=== PATIENT | female | born 1940 | race Caucasian/White ===

== ENCOUNTER 2017-09-09 07:01 | Inpatient (IN) | payer MEDICARE, BC, SELFPAY ==
[2017-09-09] VITALS (17 sets, daily range): BP systolic 75–162; BP diastolic 41–93; PULSE 56–75; RESP 14–22; TEMP 36.1–37.2; O2SAT 92–97
[2017-09-09] MEDS: Lactated Ringers 1,000 ML 80 ML IV ×2 (06:37→12:24)
[2017-09-09] MEDS: Acetaminophen 500 MG TAB 1000 MG PO ×3 (06:37→22:39)
[2017-09-09] MEDS: Gabapentin 300 MG CAP PO ×2 (06:37→22:38)
[2017-09-09] MEDS: Lactated Ringers 1,000 ML 1000 ML IV (07:31)
[2017-09-09] MEDS: Normal Saline - Diluent 50 ML VIAL (09:30)
[2017-09-09] MEDS: Bupivacaine LIPOSOME/PF 133 MG/10 ML VIAL IJ (09:30)
[2017-09-09] MEDS: Bupivacaine 0.25% Pres-Free 30 ML VIAL 60 ML (09:30)
[2017-09-09] MEDS: Ketorolac 30 MG/ML VIAL (09:30)
--- NOTE | 2017-09-09 12:58 | NUR.NOTE ---
1154: PT. ARRIVED TO M/S UNIT VSS, A&OX3, LS: CLEAR, HR: REGULAR, +CMST'S, 1+BILAT. NON-PITTING EDEMA, MEDLEY IN PLACE PATENT AND DRAININGE Nursing Note:
[2017-09-09] MEDS: Normal Saline Flush 10 ML SYR IV (13:02)
[2017-09-09] MEDS: Ibuprofen 600 MG TAB PO (15:47)
--- NOTE | 2017-09-09 15:50 | IN_ITS ---
INPATIENT PHYSICAL THERAPY EVALUATION Date: 09/09/17 Referring Doctor: Dr. Martinez PT Orders: s/p right TKA Precautions: standard PATIENT PROFILE/ADMITTING DIAGNOSIS: Patient admitted s/p right TKA performed this morning, 09/09/17. PMHX: HTN, GERD, DM Social History/Home Situation: Patient lives alone in single level home with 3 MICHAEL, single rail. She has family members planning to stay with her for about 3 weeks after surgery to assist with her care. Equipment owned/DME: none SUBJECTIVE: Shreya states that she is feeling well. She is nervous about getting up to the chair, but states that she's ready. OBJECTIVE: General Observation: Resting comfortably in bed with RLE elevated, cryocuff over right knee. She has an IV in RUE and Leon catheter in place. She has 1L supplemental O2 via nasal cannula. Mental Status: A&Ox3 Pain: 410 Vital Signs: SaO2 at 94% on 1LPM. ROM: RUE: WNL LUE: WNL RLE: Right knee allows approx -5 degrees extension to 70 degrees flexion, as assessed functionally. LLE: Grossly WNL. STRENGTH: RLE: Patient is able to perform active SLR with minor extension lag for 2 reps. She's able to pump her ankles and wiggle toes. SENSATION: intact distally BED MOBILITY/TRANSFERS: supine->sit: supervision with HOB at 30 degrees sit->stand: CG stand->sit: CG bed->chair: CG with WW GAIT: Patient ambulates 25' with WW and CG. Requires assistance for management of lines, and cues for WW management. BALANCE: Static sitting: NL Dynamic Sitting: NL Static Standing: fair Dynamic Standing: fair Mobility Limitations Standardized Measure [facility] AM -PAC 6 clicks Basic Mobility Inpatient Short Form: raw score: 19 standardized score: 45.44 CMS score: 42% CMS modifier: CK INFORMED CONSENT/EDUCATION: Pt instructed in purpose of PT Consult and plan of care ASSESSMENT: Patient is a 77 year old female referred to physical therapy services with diagnosis of right knee OA s/p right TKA 09/09/17 . Patient presents with clinical signs and symptoms consistent with post-operative status as demonstrated by the following impairment level findings: 1. Decreased RLE strength 2. Decreased RLE ROM 3. Decreased balance 4. Decreased activity tolerance 5. Gait impairments Impairments are contributing to the following functional limitations: 1. [place] on WW 2. Decreased tolerance to household distance ambulation AMPAC score 42% deficit Patient is assessed as a Low 75141 ___x__ Moderate 38025 ____ high 20528 complexity based on the following: History: Patient with right knee OA, acutely s/p right TKA. Examination: functional limitations as above Presentation: stable Decision Making: low complexity GOALS Goals x1 week 1. Supine-sit: supervision 2. Sit-Supine: supervision 3. Sit-Stand: supervision 4. Stand-sit: supervision 5. Bed-chair: supervision with WW 6. Chair-bed: supervision with WW 7. Gait: supervision with WW x 50' 8. Stairs: 3 steps, single rail, supervision only PLAN OF CARE/TREATMENT PLAN: 1-2x/day, 7 days/ week x 1 week Plan of care has been reviewed with the SIGNALLING AND COMMUNICATIONS ENGINEER providing the service under Physical therapy direction. Initiate physical therapy intervention for strengthening, bed mobility, transfers, gait, stairs, balance training, use of assistive device. DISCHARGE RECOMMENDATIONS: Home with family assistance. Patient will require WW at time of discharge. TREATMENT TIME/MINUTES/CODES: 20 minutes (IE- low complexity) G Codes in the area mobility of walking and moving around: current status [id number] ___CK____projected status GP [id number]____YH . Discharge status ( if discharging) GP [id number]
[2017-09-10] MEDS: Lactated Ringers 1,000 ML 80 ML IV (01:43)
[2017-09-10 03:15] VITALS: BP 113/74; PULSE 72; RESP 18; TEMP 36.7; O2SAT 95
[2017-09-10] MEDS: Acetaminophen 500 MG TAB 1000 MG PO ×2 (04:52→13:48)
--- NOTE | 2017-09-10 06:26 | PDOC.OPNB ---
Date of Service: 09/09/17 Time of Service: 10:20 Op Note REPORT OF OPERATIVE PROCEDURE Date of Procedure: September 09, 2017 Preoperative Diagnosis: Right knee Osteoarthritis with severe valgus deformity Postoperative Diagnosis: Right knee Osteoarthritis with severe valgus deformity Surgery: Right total Knee Arthroplasty with Intraoperative Navigation Surgeon: Jason Martinez M.D. Ribbon Cleaner: ZULMA Toussaint Findings: Preoperatively there is a valgus deformity 15? and a flexion contracture of 10?. There is severe arthritis seen throughout the knee in all 3 compartments but especially of the lateral compartment. Implants: 1. Depuy Attune Posterior Stabilized Femoral Component, Size 6 narrow 2. Depuy Attune Fixed Platform Tibial Component, Size 4 3. Depuy Attune 6 x 8 mm fixed, Stabilized Poly 4. Depuy Attune Patellar Component, 32 mm Anesthesia: Spinal Estimated Blood Loss: 400 cc Complications: None Disposition: The patient was awakened from the sedation and transferred back to the PACU in a stable condition. Indications for Procedure: I have seen Shreya in clinic for symptoms of knee arthritis, confirmed with radiographic findings. Shreya has exhausted nonoperative methods and was having significant limitations in daily function and desired better function and less pain. I discussed the technical details of a knee replacement. Due to alignment and technical details, I also indicated the appropriateness of using a navigation device in the operating room. I explained the risks of the procedure to include, but not limited to, bleeding, infection, pain, stiffness, fracture, damage to nerves and vessels, damage to muscles and tendons, loosening, need for repeat procedure, blood clot and cardiopulmonary demise. Despite these risks, she elected to proceed. Procedure Description: Shreya was greeted in the preoperative holding area where the correct side was identified and marked. The consent was reviewed with the patient and signed. The history and physical was updated. All questions were answered. Preoperative mediacations were administered: Acetaminophen 1000mg, and gabapentin 300mg. An adductor canal block was then administered by the anesthesia team in the PACU. She was taken back to the operating room. A spinal anesthestic was then administered. The patient was placed into the supine position on the operating room table. A nonsterile tourniquet was placed high onto the leg but only used for cementing. Posts were placed for positioning during the procedure. All bony prominences were well padded. Prophylactic antibiotics in the form of Cefazolin were administered. 1g of Tranxemic Acid was given intravenously within 30 minutes of incision. The right leg was then prepped with Chloraprep and draped in a standard fashion with impervious stockinette and extremity drape with Iodine impregnated skin protection. A timeout to confirm correct identity, side and site, procedure, allergies, anesthesia, and medical concerns was performed. With the knee in some flexion, a midline incision was made overlying the knee. Full thickness skin flaps were raised once the extensor mechanism was encountered. These were raised medially and laterally. Any bleeding was controlled with electrocautery. Once the extensor mechanism was fully exposed, a medial parapatellar arthrotomy was performed in a flexed position. All bleeding from the arthrotomy and the geniculate arteries was coagulated. A medial subperiosteal peel was performed with electrocautery to the midcoronal plane. The fat pad was removed while keeping the patellar tendon protected. The anterior distal femur synovium was removed for later visualization. The ACL and PCL were resected and the anterior horn of the lateral meniscus was transected. The knee was then flexed with the patella everted. Large osteophytes from the tibia were removed. Large osteophytes from the femur were removed. There was some hypoplasia of the lateral femoral condyle and any remnant cartilage of the medial femoral condyle was removed for appropriate thickness. A single starting pin was then placed 1cm anterior to the PCL insertion and the notch in the direction of the femoral head. The OrthoAlign device was applied over the pin. It was oriented to be in line with the epicondylar axis and the trochlear groove. It was then pinned into place. The navigation computer was then turned on and calibrated. The distal femur cut was set at 0 degrees varus/valgus and 2.5 degrees flexion. The distal femur cutting guide then was positioned for a 11 mm cut. The distal femur was cut with an oscillating saw while protecting the soft tissues. The tibia was then addressed. The OrthoAlign device was placed over the tibial tubercle and medial tibia and secured into position. Once again, OrthoAlign was calibrated and then set for a 0 degree varus/valgus cut and 3 degrees of posterior slope. With this locked into position, the cut thickness stylus was used to assess cut thickness. The lateral side, most involved side, was set for a 4mm cut. This was then held in position and pinned into place with 2 additional pins and a cross pin for stability. The medial and lateral collateral ligaments were protected and the cut was performed. With this completed, it was assessed and noted to be of appropriate dimensions. The guide and OrthoAlign was removed. A spacer block was inserted and the knee was brought into extension. The 6mm spacer block provided full extension, without hyperextension and with stability of both the medial and lateral collateral ligaments was assessed. The pins from the femur and the tibia were then removed. The distal femur was then sized. The anterior stylus was placed onto the lateral ridge of the anterior femur. This indicated a size 6 femur. The external rotation of the guide was adjusted to 5? to match the epicondylar axis, perpendicular to Bartow?s line. The 4-in-1 cutting guide was the placed. The posterior medial femur cut was evaluated and appeared of good thickness. The spacer block was inserted underneath the cutting guide and stability was confirmed in 90 degrees of flexion. An jose manuel wing was used to confirm appropriate position of the anterior cut to avoid notching. This cutting guide was ensured to be flush on the cut surface and then pinned into place with headed pins. While protecting the soft tissues, quad tendon, and collateral ligaments, the anterior and posterior cuts were performed with a saw. The central two pins were removed and the posterior and anterior chamfers were cut next. The notch-cutting guide was placed. This was pinned to lateralize the femoral component as much as possible while keeping it flush on the cut surface. This was then pinned into position. A reciprocating saw was used to make the notch cut. A rasp smoothed the cut surfaces. A trial posterior stabilized femoral component was then inserted, impacted down to the cut surfaces, and the lug holes were drilled. A provisional trial tibial component was placed and the knee was brought through range of motion. There is still some tightness in extension. Therefore, I removed posterior osteophytes and strips of the posterior capsule focusing laterally more than medially. This helped with the bouncing an 8 mm spacer provided good balance both in flexion and extension. The patella was tracking without thumbs. The tibial cut surface was fully exposed. The medial and lateral menisci were removed. The tibia was then sized as a 4. The tibia had been previously marked during trialing to correspond to the center of the tibial component to help with rotation. The trial was aligned to this jay, approximately rotated to the medial 1/3rd of the tibial tubercle. The trial was pinned into place. The tibia was prepared with a reamer and a keel punch. The knee was then brought into extension and the patella was measured as 25 mm. Using the patellar clamp and cut guide, this was resected to a flat surface with at least 13mm of thickness remaining. The size 32 mm patella fit the best. This was oriented and then clamped into position. The lugs were drilled. The trial components were removed. The final components, except for the polyethylene were opened on the back table. The periosteal and capsular tissues around the knee were then systematically injected with a periarticular cocktail consisting of 50cc 0.25% Marcaine, 30mg Ketorolac, 20cc of Exparal and 50cc of injectable saline. The tourniquet was then inflated to 275mmHg. The knee was thoroughly irrigated with a pulse lavage and dried. On the back table, with the implants opened, the cement was mixed. 2 batches of antibiotic laden cement were prepared with vacuum assistance. After the cement was ready a small amount was placed on to the back side of the tibial component at the keel. A small amount was placed onto the posterior flange of the femur. Cement was manual pressurized and impregnated into the cut surface of the tibia. The tibial component was then inserted into the cut surface and impacted into position. Excess cement was removed and the component was reimpacted. Again, excess cement was removed and our attention was then turned to the femur. The femoral cut surface was once again dried and cement was manually impacted into the cut surface. The femoral component was lined with the lug holes and impacted. Excess cement was removed. It was ensured to be down against the cut surface. The trial polyethylene was then inserted and the leg was brought out into full extension for the duration of the cement curing process, approximately 15min. Cement was lastly manually impacted into the cut surface of the patella and the patellar button was clamped into position and held. During this process attention was turned to the gutters of the knee and for all interfaces for any excess cement. After the cement had finally cured, approximately 15min, the clamp was removed from the patella and the knee was taken through range of motion. A size 8 mm polyethylene component provided the best range of motion and stability with less than 2mm gapping with medial and lateral stress and full extension without significant hyperextension. The patella was tracking with a no-thumbs technique. The trial poly was removed and once again the knee was checked for any loose, excess, or errant cement. The poly component was then inserted and impacted into position after cleaning and drying the tibial tray. The capsule was then reapproximated with a No. 1 Vicryl at multiple locations. The capsule was finally closed with a No. 2 Stratafix, barbed suture. The tourniquet was then released and the arthrotomy appeared watertight. The second dosing of 1g TXA was started. Deep tissues were then reapproximated with 0 Vicryl and 2-0 Vicryl. The skin was closed with a running 3-0 Monocryl in a subcuticular fashion. This was reinforced with skin glue. A Mepilex silver dressing was applied along with a ayhy-xn-xeewt KAVIN wrap. A CryoCuff was applied. Shreya was transferred to the hospital bed without difficulty an suffering no apparent complication. She has a good prognosis. Physical therapy will start today and without restrictions, weight-bearing as tolerated. Aspirin 81mg BID will be used for DVT prophylaxis.
[2017-09-10 06:53] LABS: HCT 36.6 % (36.0-46.0); HGB 12.2 g/dL (12.0-15.5); Mean Corp. HGB Concentration 33.3 g/dL (32.0-36.0); Mean Corpuscular Hemoglobin 30.7 pg (27.0-33.0); Mean Corpuscular Volume 92.2 fL (80-95); Mean Platelet Volume 9.9 fL (8.0-11.0); Platelet Count 204 x1000/uL (130-400); RBC 3.97 m/cumm (4.00-5.20); RBC Distribution Width 13.1 % (11.7-14.6); White Blood Cell Count 7.14 k/cumm (4.4-10.8)
[2017-09-10 07:03] LABS: Anion Gap 3.2 mmol/L (3-11); BUN 13 mg/dL (7-18); CO2 31.8 mmol/L (21.0-32.0); Calcium 8.8 mg/dL (8.5-10.1); Chloride 105 mmol/L (98-107); Glucose 157 mg/dL (70-100); Potassium 4.2 mmol/L (3.5-5.1); Sodium 140 mmol/L (136-145)
[2017-09-10 07:26] VITALS: BP 118/68; PULSE 75; TEMP 37.4; O2SAT 92
[2017-09-10] MEDS: Aspirin E.C. 81 MG TABEC PO (07:41)
[2017-09-10] MEDS: Pantoprazole 40 MG TABCR PO (07:41)
[2017-09-10 08:39] VITALS: O2SAT 83
[2017-09-10 08:40] VITALS: O2SAT 96
[2017-09-10] MEDS: Ibuprofen 600 MG TAB PO ×2 (08:56→16:07)
--- NOTE | 2017-09-10 09:56 | INPTTR_ITS ---
PHYSICAL THERAPY PROGRESS NOTE Date: 09/10/17 PRECAUTIONS: STANDARD SUBJECTIVE: Shreya states that she's having knee pain. States that she thinks it' s waking up. OBJECTIVE PAIN: 8/10 at initiation of session. 07/22 post-treatment. BED MOBILITY/TRANSFERS Supine-sit: supervision, with HOB at 30 degrees Sit-supine: supervision Sit-stand: supervision Stand-sit: supervision, with need for occasional cues Bed-Chair: supervision with WW Chair-bed: supervision with WW GAIT Assistive Device WW Weightbearing full Assist: CG Distance: 30'x3 Deviation Patient is also able to ambulate 10'x2 with WW and supervision only VITALS: On room air, patient desaturates t o89% after stair management. With pursed lip breathing, she quickly resats to 93%. RT was present at initiation of session, requesting patient be off supplemental O2 when sitting up or ambulating, but on 1LPM when lying in bed. THEREX: Patient instructed in seated therex activities as noted on flow sheet. STAIRS: Patient manages 6 steps x 4, 4 steps x 6 with heavy reliance on bilat rails, CG throughout, and max cues for technique. ASSESSMENT: Excellent gains in mobility. She tolerated addition of stair management today with good safety awareness and mobility, although accompanied by oxygen desaturation. PLAN: Continue PT to maximize safety and mobility. TREATMENT CODES/TIME: LEIF TUCKER (35 minutes)
[2017-09-10 11:55] VITALS: BP 155/70; PULSE 70; TEMP 36.5; O2SAT 96
[2017-09-10 12:05] VITALS: O2SAT 95
--- NOTE | 2017-09-10 13:30 | PDOC.CMIN ---
Date of Service: 09/10/17 Time of Service: 13:30 Care Management Initial Assess REASON FOR HOSPITALIZATION:: Right Total Knee PAST MEDICAL HISTORY/PAST SURGICAL HISTORY:: Severe DJD of the right knee, hypertension, diabetes, GERD. Surgical history: Appendectomy, cholecystectomy, hysterectomy, left trapezial arthroplasty, trigger finger release, bilateral cataracts. PREVIOUS FUNCTIONAL STATUS/SOCIAL/FAMILY SUPPORTS:: Patient lives in her own home in [facility], she is . She has three grown children that are supportive. Her daughter Roxane will be staying with her for the week. CURRENT FUNCTIONAL STATUS:: Patient is alert, engaged with CM during assessment. She is hopeful she will be able to return home today she feels that she is ready for discharge.She states that she will plan to have PT over in [facility]. She has a camp there and wants to be there for the summer. ADVANCE DIRECTIVES:: On file at [facility] Has patient been provided with information about the portal?: Yes Did the patient sign up for the portal?: No CODE STATUS:: Full Code INSURANCE COVERAGE / FINANCIAL ISSUES:: Medicare. BCBS CURRENT HOME/COMMUNITY SERVICES/EQUIPMENT:: Patient has a walker, raised toilet seat and supportive family. PRIMARY CARE PHYSICIAN:: POTENTIAL DISCHARGE NEEDS:: Follow up appointment with PATIENT/FAMILY EDUCATION NEEDS:: Discharge education, limitations, follow-up plan of care, ask me 3 discussion and self-management. ANTICIPATED BARRIERS TO DISCHARGE:: No anticipated barriers at this time TRANSPORTATION:: Patient to be transported home by family via private car at time of discharge PLAN:: Patient continues to the medical surgical patient. She will be discharged home when medically ready per provider. Patient states he has a walker and does not need any other services at this time. Patient will be transported home by her daughter at time of discharge by private car.
--- NOTE | 2017-09-10 13:37 | INITIAL_ITS ---
Date of Service: 09/10/17 Time of Service: 13:30 Care Management Initial Assess REASON FOR HOSPITALIZATION:: Right Total Knee PAST MEDICAL HISTORY/PAST SURGICAL HISTORY:: Severe DJD of the right knee, hypertension, diabetes, GERD. Surgical history: Appendectomy, cholecystectomy, hysterectomy, left trapezial arthroplasty, trigger finger release, bilateral cataracts. PREVIOUS FUNCTIONAL STATUS/SOCIAL/FAMILY SUPPORTS:: Patient lives in her own home in [facility], she is . She has three grown children that are supportive. Her daughter Roxane will be staying with her for the week. CURRENT FUNCTIONAL STATUS:: Patient is alert, engaged with CM during assessment. She is hopeful she will be able to return home today she feels that she is ready for discharge.She states that she will plan to have PT over in [facility]. She has a camp there and wants to be there for the summer. ADVANCE DIRECTIVES:: On file at [facility] Has patient been provided with information about the portal?: Yes Did the patient sign up for the portal?: No CODE STATUS:: Full Code INSURANCE COVERAGE / FINANCIAL ISSUES:: Medicare. BCBS CURRENT HOME/COMMUNITY SERVICES/EQUIPMENT:: Patient has a walker, raised toilet seat and supportive family. PRIMARY CARE PHYSICIAN:: POTENTIAL DISCHARGE NEEDS:: Follow up appointment with PATIENT/FAMILY EDUCATION NEEDS:: Discharge education, limitations, follow-up plan of care, ask me 3 discussion and self-management. ANTICIPATED BARRIERS TO DISCHARGE:: No anticipated barriers at this time TRANSPORTATION:: Patient to be transported home by family via private car at time of discharge PLAN:: Patient continues to the medical surgical patient. She will be discharged home when medically ready per provider. Patient states he has a walker and does not need any other services at this time. Patient will be transported home by her daughter at time of discharge by private car.
--- NOTE | 2017-09-10 14:34 | INPTTR_ITS ---
PHYSICAL THERAPY PROGRESS NOTE Date: 09/10/17 SUBJECTIVE: Anh stating she is doing pretty good. She would like to go home. Her pain is under control when she is lying in bed and increases slightly with movement. OBJECTIVE Pt is in bed upon entering her room. Her daughter is present. She will be staying with Anh when she returns home. BED MOBILITY/TRANSFERS Scoot: I Supine-sit: S Sit-supine: Min A, Provide some assistance with right LE. Sit-stand: S Stand-sit: S GAIT Assistive Device FWW Weightbearing WBAT Assist: CG Distance: 50' VITALS: 91% on RA THEREX: Review HEP and gave pt handout of these exercises. She tolerates active SLR with slight extension lag. She has a good understanding of these exercises for home completion. ASSESSMENT: Tolerates PT well this afternoon. Anh and her daughter feel comfortable going home at this point and I do agree with them. PLAN: Per PT POC. TREATMENT CODES/TIME: 25 minutes. TA/LEIF Whitehead, ENEIDA
--- NOTE | 2017-09-10 14:34 | DISCHARGE ---
Discharge - Discharge Orders Referrals: Jason Martinez MD [ [facility] STAFF PHYSICIAN] - - Discharge Plan Disposition: HOME Condition: Good Diet:: Normal Diet Equipment/Supplies:: Walker Activity:: Activity as Tolerated - Instructions Additional Instructions: Dr. Martinez?s Total Knee Discharge Instructions Activity: The most important activity is to walk. You should try to take short walks a few times a day. It is important that when resting you work on keeping the knee straight. Avoid putting a pillow behind the knee as this will encourage flexion. Work on range of motion exercises as provided by Physical Therapy. - Start outpatient physical therapy within 2 weeks. - You should wear the ENE hose on both legs for 4 weeks. Dressing: Keep the surgical dressing in place for at least one week. After the first week it may be removed and replace with light gauze and tape or nothing. It may get wet after 3 days but avoid soaking the dressing. If it gets wet, just lightly pat dry. Medications: - You should take Tylenol and anti-inflammatory (Ibuprofen) as your primary pain control medications - You have been prescribed a stronger pain medication (Tramadol) for breakthrough pain, take as needed as prescribed. - You will be taking Aspirin 81mg twice a day for DVT prevention unless instructed otherwise. - If you have constipation you should take Colace or Miralax (both amnm-duj-aswoncy). It takes most people 3-4 days to have a bowel movement. Follow-up: 2 weeks
--- NOTE | 2017-09-10 14:38 | PDOC.DISCH_ITS ---
Discharge - Discharge Orders Referrals: Jason Martinez MD [ [facility] STAFF PHYSICIAN] - - Discharge Plan Disposition: HOME Condition: Good Diet:: Normal Diet Equipment/Supplies:: Walker Activity:: Activity as Tolerated - Instructions Additional Instructions: Dr. Martinez s Total Knee Discharge Instructions Activity: The most important activity is to walk. You should try to take short walks a few times a day. It is important that when resting you work on keeping the knee straight. Avoid putting a pillow behind the knee as this will encourage flexion. Work on range of motion exercises as provided by Physical Therapy. - Start outpatient physical therapy within 2 weeks. - You should wear the ENE hose on both legs for 4 weeks. Dressing: Keep the surgical dressing in place for at least one week. After the first week it may be removed and replace with light gauze and tape or nothing. It may get wet after 3 days but avoid soaking the dressing. If it gets wet, just lightly pat dry. Medications: - You should take Tylenol and anti-inflammatory (Ibuprofen) as your primary pain control medications - You have been prescribed a stronger pain medication (Tramadol) for breakthrough pain, take as needed as prescribed. - You will be taking Aspirin 81mg twice a day for DVT prevention unless instructed otherwise. - If you have constipation you should take Colace or Miralax (both over-the- counter). It takes most people 3-4 days to have a bowel movement. Follow-up: 2 weeks
--- NOTE | 2017-09-10 16:03 | PDOC.CMDIS ---
Date of Service: 09/10/17 Time of Service: 16:04 LACE Index Scoring Tool - Questions: Length of Stay (in days): 2 Acuity (Admit via E.D.?): No Comorbidities: Diabetes w/o Complication E.D. Visits: 0 - Answers: Total Score: 3 Risk of Readmission: Low Risk Care Management Discharge Reason for Hospitalization: Right Total Knee Discharge Plan: Pt to be discharged home today and follow up with as directed. She will transport home with daughter via private car. Pt has her own equipment including walker. Patient/Family Education Needs: Discharge education, limitations, follow-up plan of care, ask me 3 education and self-management discussion.
--- NOTE | 2017-09-11 08:09 | DSE_ITS ---
DISCHARGE SUMMARY DATE OF ADMISSION September 09, 2017 DATE OF DISCHARGE September 10, 2017 DISCHARGE DIAGNOSIS Right knee osteoarthritis. PROCEDURE September 09, 2017 - Right total knee arthroplasty. HISTORY OF PRESENT ILLNESS Shreya is a 77-year-old who has had severe arthritis of both knees. It has been limiting for her for man y years. After failure of conservative treatment options, she desired to proceed with a knee replace ment. The risks and benefits were discussed with her in the office and she elected to proceed. HOSPITAL COURSE Shreya was admitted to the Med/Surg floor following the procedure. She tolerated the procedure well with out any notable medical, surgical, or anesthetic complications. On postop day #0, she was able to ambulate. She did have some mild lightheadedness and hypotension at that time, but it resolved over the evening of postop day #0. By postop Day #1, her Leon catheter was removed and she was voiding spontaneously. Her vital signs are stable. Her postoperative hemoglobin was 12.2. She was able to ambulate with physical therapy. Her pain was controlled with Tylenol and ibuprofen. She was thus deemed safe to discharge home. I discussed Home Health Physical Therapy with her, but she desired to do outpatient physical therapy. DISCHARGE DISPOSITION Home. DISCHARGE CODE STATUS FULL CODE DISCHARGE INSTRUCTIONS Discharge instructions were provided in a separate document in the patient's EMR. DISCHARGE MEDICATIONS 1. Tramadol 50 mg p.o. q. 6 hours. 2. Acetaminophen 1000 mg p.o. q. 8 hours p.r.n. 3. Ibuprofen 600 mg p.o. t.i.d. p.r.n. 4. Aspirin enteric-coated 81 mg p.o. b.i.d. x6 weeks. 5. Docusate sodium 100 mg p.o. b.i.d. 6. Polyethylene glycol 3350 17 grams p.o. b.i.d. p.r.n. FOLLOWUP Followup in two weeks.
--- NOTE | 2017-09-11 16:05 | INDS_ITS ---
PHYSICAL THERAPY INPATIENT DISCHARGE NOTE Date: 09/11/17 Dates of Service: 09/09/17 - 09/10/17 This document serves as a summary of care. No PT services were provided on this date. SUBJECTIVE: Patient was discharged home the evening of 09/10/17, after 3 PT session for rehabilitation following right TKA. OBJECTIVE Pain: well-managed at time of last PT session ROM: RUE: WNL LUE: WNL RLE: Right knee allows approx -5 degrees extension to 80 degrees flexion, as assessed functionally. LLE: Grossly WNL. STRENGTH: RLE: Quad 3/5. Patient is able to perform active SLR with minor extension lag. SENSATION: intact distally BED MOBILITY/TRANSFERS: Supine-sit: supervision Sit-supine: min A to RLE Sit-stand: supervision Stand-sit: supervision GAIT: Patient able to ambulate 50' with WW and CG. Additionally, she demonstrated ability to ambulate short distances with WW and supervision only ( 10'x2). She is able to manage 6 stairs x 4 steps and 4 stairs x 6 steps with bilat rails and CG. BALANCE: Static sitting: NL Dynamic sitting: NL Static standing: fair Dynamic standing: fair ASSESSMENT: Patient was seen for 3 sessions of PT following right CAROLINE. She demonstrated excellent gains in mobility and ability to safely manage household distance ambulation and stairs required for her to return home with assistance from family. GOALS ( Met / Not Met): Goals: 1. Supine-sit: supervision (MET) 2. Sit-Supine: supervision (PROGRESSING TOWARD) 3. Sit-Stand: supervision (MET) 4. Stand-sit: supervision (MET) 5. Bed-chair: supervision with WW (MET) 6. Chair-bed: supervision with WW (MET) 7. Gait: supervision with WW x 50' (PROGRESSING TOWARD) 8. Stairs: 3 steps, single rail, supervision only (PROGRESSING TOWARD) DISCHARGE PLAN/RECOMMENDATIONS: Home with family assistance.
== END 2017-09-10 16:42 | disposition home or self-care (01) | DRG 470 ==
PROVIDERS: Admitting Provider Student in an Organized Health Care Education/Training Program; Visit Provider Student in an Organized Health Care Education/Training Program
DX: M17.11 Unilateral primary osteoarthritis, right knee (principal); M21.061 Valgus deformity, not elsewhere classified, right knee; Z96.651 Presence of right artificial knee joint; M24.561 Contracture, right knee; I10 Essential (primary) hypertension; E11.9 Type 2 diabetes mellitus without complications; K21.9 Gastro-esophageal reflux disease without esophagitis; I95.81 Postprocedural hypotension
CPT/HCPCS: 27447; 20985; 36415; 80048; 85027; 97530 ×2; 97110 ×2; 97161; J0690 ×3; J1885; J2405; J2250; 76942; J3490

== ENCOUNTER → 2017-12-08 10:15 | Outpatient (CLI) | payer MEDICARE, BC, SELFPAY | PROVIDERS: Visit Provider Student in an Organized Health Care Education/Training Program | DX: Z47.1 Aftercare following joint replacement surgery (principal); Z96.651 Presence of right artificial knee joint | CPT/HCPCS: 99213 ==

== ENCOUNTER 2018-09-09 14:15 | Outpatient (CLI) | payer MEDICARE, BC, SELFPAY ==
--- NOTE | 2018-09-09 14:05 | DI.RAD_ITS ---
SYMPTOM/DIAGNOSIS: ONE YEAR FOLLOW UP RT TKA, LT THUMB DEFORMITY LEFT THUMB: There is pronounced dorsal medial subluxation or dislocation is identified at the first metacarpal phalangeal joint. There is no evidence of an acute fracture. RIGHT KNEE: The patient is status post TKA. The prosthesis is in good position. Surrounding bone intact.
== END 2018-09-09 14:35 ==
PROVIDERS: Visit Provider Student in an Organized Health Care Education/Training Program
DX: Z96.651 Presence of right artificial knee joint (principal); M20.002 Unspecified deformity of left finger(s); Z47.1 Aftercare following joint replacement surgery; M17.11 Unilateral primary osteoarthritis, right knee
CPT/HCPCS: 99214; 73140; 73560